=== PATIENT | male | born 1950 | race Two or more races ===

== ENCOUNTER 2017-01-02 12:25 | Emergency (ER) | payer MEDICARE ==
[~2017-01-02] VITALS: Ht 180.3 cm; Wt 90.0 kg
[2017-01-02 12:34] VITALS: BP 158/94; PULSE 72; RESP 18; TEMP 98.2; O2SAT 96
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
[2017-01-02] MEDS ORDERED: TETANUS/DIPHTHERIA TOXOID ADULT 0.5 ML VIAL IM ONE (12:45)
[2017-01-02] MEDS ORDERED: LIDOCAINE 2%/EPINEPHrine 1:100,000 50ML MDV NERV BLOCK ONE (12:45)
== END 2017-01-02 14:10 | disposition home or self-care (01) ==
LOC: NEPE 12:25
DX: S01.81XA Laceration without foreign body of other part of head, initial encounter (principal); X99.8XXA Assault by other sharp object, initial encounter; Y92.481 Parking lot as the place of occurrence of the external cause; Z23 Encounter for immunization
CPT/HCPCS: 12015; 90471; 90714